=== PATIENT | male | born 1970 | race Caucasian/White ===

== ENCOUNTER 2024-03-26 08:00 | Outpatient (RCR) | payer OTHER, SELFPAY ==
--- NOTE | 2024-03-26 11:15 | BH.SGPN.GN ---
Behaviors/Verbalizations/Mental Status: [] Pt alert and oriented, casually dressed and groomed. Eye contact good. Motor activity appropriate. Speech within normal limits. Affect congruent, mood anxious and content. Thoughts linear, logical, no signs of hallucinations or delusions. Client Response/Progress/Benefit: [] Pt was an attentive and active participant in group discussions and experiential activity, doing well to regulate their emotions throughout the activity and work with peers. Attentive during psychoeducation on the 4 A's (Avoid, adapt, alter, accept) of coping with stress. Shared that they would benefit most from avoiding excessive unhealthy exposure to world politics/news. Was able to identify the connection between the experiential activity and utilization of stress management skills. Benefited from increased awareness of stress management strategies. Pt will continue IOP tx to prevent decompensation and improve daily functioning. Narrative Note: []
--- NOTE | 2024-03-26 11:29 | BH.PSA ---
Source of Information Presenting Problems/Circumstances Problems, Referral Source, Mental Status, Client: The patient is a 53-year-old male with a history of anxiety, depression and ADHD who was referred to the [facility] behavioral health IOP by his psychiatrist due to worsening anxiety and depression which is making him unable to function at work and at home for the past 6 months. Patient reports his primary stressor as increasing pressure at work, noting he does not feel he can handle any more responsibility. He feels very emotionally drained by the time he gets home from work and has been on FMLA leave since March 12, 2024 due to anxiety. Psychiatric Presentation Psych Issues & Need for Admission Psychiatric Issues:: depression, anxiety, panic Past Psychiatric History MH Treatment Hx First hospitalization:: denies Most recent hospitalization:: denies Medication Trials:: Yes (Prozac, Strattera, Ritalin and Vyvanse ) ECT Therapy:: No Age of first mental health symptoms: . Diagnosed with ADHD over 20 years ago. Depression and anxiety diagnosed in the last 15 years. He has had counseling on and off for 20 years and found it helpful. He seen a psychiatrist for 2 years. Current providers for mental health treatment (counselor, psychiatrist, correctional case manager, etc.): [facility]. No current counselor, will be connected prior to d/c. Development & Family of Origin Childhood Significant Childhood Events: Parents when pt was in middle school. Pt's father was an alcoholic. Family Who currently lives in your home?: Pt lives with his and 2 cats. Describe family composition:: Pt is the younger of two children, he has a brother whom he is close with. Pt reports his parents when he was in middle school and he has a relationship with them both. Pt has 5 children from his first marriage of 20 years ages 25-33 and has 1 stepchild from his current marriage who is 24. His oldest child is estranged from the family but he has good relationships with his other children and family. to current for 10 years. Family History Family Hx of Psychiatric or AOD Problems: Mother and father are both living. Father is an alcoholic but is in remission for 40 years. Brother has depression, anxiety and ADHD. No completed suicides in the family. Ethnicity Culture Do you identify yourself with any particular cultural, ethnic background, or community?: No Sexuality Sexual Orientation: Bisexual Spirituality Pent[employer]al Do you currently identify with any organized jew?: None Mental Status Memory Recent Memory: Fair Remote Memory: Fair Concentration Concentration: Fair Eye Contact Eye Contact: Good Speech Speech: Pressured Thought Process Thought Process: Logical Insight: Fair Judgment: Fair Behavior: Normal Orientation Orientation: Time, Person, Place and Situation Appearance Appearance: Neat/clean Mood Mood: Anxious and Depressed Affect Affect: Appropriate/calm Suicide Assessment Suicidal Ideation Have you ever felt like hurting yourself?: No Physician Notification Violent Behavior/Abuse History Homicidal Ideation Do you have any homicidal thoughts? If so, explain:: No Abuse Have you ever been abused?: No Life Events Are there any other significant life events?: Hardships (left the confucianist following divorce, estranged from oldest child) Safety Do you ever feel threatened in your home? If yes, describe:: No Adult Social History Age 18 to Present Describe your current support system:: Pt reports his and adult children are primary supports, pt would like to build additional friendships Substance Use Substance Substance Use Type: Alcohol (1-2 drinks/week), Marijuana (nightly for sleep) and Tobacco (Quit smoking cigarettes over 20 years ago) IV Substance Use Do you have a history of IV use?: denies Leisure/Social Activities Interests What do you enjoy or might be interested in learning about?: Pt enjoys bike, hiking, outdoors, learning new hobbies, Education & Occupational Histo Education What is your level of education?: Some College Do you have any learning disabilities?: Yes (ADHD) Occupation List any current or past employment:: Pt has been working in the [employer] field for much of his adult life. 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 If yes, describe:: No Court Orders Have you had any past court orders for psychiatric treatment?: No Do you have a present court order for psychiatric treatment?: No Problem Checklist Current Problem Areas Problem List: Depressed mood/sad, Anxiety, Inattention, Pertinent health issues (back issues) and Additional psychosocial stressors Discharge Planning Needs Anticipated Follow-Up Mental Health Center (Name/Phone Number):: [facility] Private Therapist/Psychiatrist:: Sindhu Grayson, psychiatrist Primary Care Physician: Moi Juan Family and Caregiver Contacts:: , Ly Guerrier Release of Information Signed:: Yes [employer]'s Assessment Client's Needs What are the client's feelings about the program?: Pt is hopeful the program will improve insight and help to stabilize his mood. What are the client's goals?: To better manage sx of anxiety and depression, as well as improve his ability to function at work. What are the client's strengths?: Pt is intelligent, motivated, and open to learning and trying new treatment recommendations. Diagnoses Diagnoses Diagnosis #1:: Major depressive disorder, recurrent, moderate Diagnosis #2:: Panic disorder Diagnosis #3:: Generalized anxiety disorder Diagnosis #4:: ADHD Interpretive Summary Interpretive Summary Interpretive Summary: The patient is a 53-year-old male with a history of anxiety, depression and ADHD who was referred to the [facility] behavioral health IOP by his psychiatrist due to worsening anxiety and depression which is making him unable to function at work and at home for the past 6 months. Patient reports his primary stressor as increasing pressure at work, noting he does not feel he can handle any more responsibility. He feels very emotionally drained by the time he gets home from work and has been on FMLA leave since March 12, 2024 due to anxiety. He states that he feels himself dying inside at work and stated this happened previously a year ago in which he also took FMLA for 2 months to address the anxiety. He has difficulty concentrating and loses his train of thought often at work. Other stressors include his [id number] whom has Alzheimer?s moving in in July, his ?s health and not wanting her to have to return to the workforce, and his daughter getting . Pt endorses panic 2-3x/week, ruminating thoughts, hopelessness, guilt, low energy, poor concentration, and loss of enjoyment in activities he previously enjoyed. Denies worthlessness, anhedonia, passive thoughts of , suicidal ideation, plan for suicide, homicidal ideation, history of self-harm, hallucinations, delusions, minoo, OCD, eating disorders and trauma or PTSD. Current sx impacting pt?s ability to function at baseline, resulting in recommended IOP level of care. Treatment Plan Recommendations Recommendations Guidelines Recommendations:: The patient will start the IOP and behavioral health at [facility] as the structure, support, education and group therapy will hopefully prevent worsening of the patient's symptoms.
--- NOTE | 2024-03-26 14:19 | BH.MTP_ITS ---
Master Treatment Plan Patient Information Program Physician:: Dr. Shara Godoy Primary Therapist:: ZEINAB Hicks Psychiatric Diagnoses Psychiatric Diagnoses:: 1. Major depressive disorder, recurrent, moderate 2. Panic disorder 3. Generalized anxiety disorder 4. ADHD Diagnosis Code(s):: F33.2 Estimated LOS Estimated LOS (in weeks):: 6 Problem/Goal #1 Problem/Goal #1 Stated Goal:: Will reduce anxiety and panic symptoms through increasing emotional regulation and distress tolerance skills Description of Barriers: Pt recognizes that he is tends to be self-critical, pushes himself, and is a perfectionist. Pt also struggles with believing he is only worthy if he is productive, which leads to pt feeling guilty or burnout. Pt is also the primary income in the household which puts additional pressure on him. Functional Impact: The patient is a 53-year-old male with a history of anxiety, depression and ADHD who was referred to the [facility] behavioral health IOP by his psychiatrist due to worsening anxiety and depression which is making him unable to function at work and at home for the past 6 months. Patient reports his primary stressor as increasing pressure at work, noting he does not feel he can handle any more responsibility. He feels very emotionally drained by the time he gets home from work and has been on FMLA leave since March 12, 2024 due to anxiety. He states that he feels himself dying inside at work and stated this happened previously a year ago in which he also took FMLA for 2 months to address the anxiety. He has difficulty concentrating and loses his train of thought often at work. Other stressors include his [id number] whom has Alzheimer?s moving in in July, his ?s health and not wanting her to have to return to the workforce, and his daughter getting . Pt endorses panic 2-3x/week, ruminating thoughts, hopelessness, guilt, low energy, poor concentration, and loss of enjoyment in activities he previously enjoyed. Denies worthlessness, anhedonia, passive thoughts of , suicidal ideation, plan for suicide, homicidal ideation, history of self-harm, hallucinations, delusions, minoo, OCD, eating disorders and trauma or PTSD. Current sx impacting pt?s ability to function at baseline, resulting in recommended IOP level of care. Goal Relevant Strengths/Supports: Pt is intelligent, has good support at home, and is able to take time off work to focus on his mental health. Objectives Objective #1: Stated Objective: Pt will increase ability to manage stressors and anxiety by gaining 2-3 distress tolerance skills. Interventions: Through group and individual therapy, pt will learn various coping skills to help manage stress and anxiety. Therapist will utilize DBT distress tolerance skills to increase awareness and give pt tools to more effectively manage anxiety. Therapist will provide psychoeducation on emotional regulation and help pt identify unhealthy coping skills he wants to change. Discharge Criteria: Pt will have accomplished this goal when can report improved ability to manage stressors and identify at least 2 distress tolerance skills. Target Date: 05/10/24 Review Date: 04/17/24 Objective #2: Stated Objective: Pt will identify 2-3 anxiety and panic triggers and 2 coping skills to use when feeling anxious or overwhelmed to manage anxiety as shown by reducing DSM-5 scores for anxiety Interventions: Therapist will provide education on anxiety, avoidance behaviors, and maintenance cycles. Therapist will help pt explore personal symptoms and warning signs of anxiety and irritability. Therapist will teach pt coping skills to improve emotional regulation, mindfulness, and distress tolerance to help pt cope with anxiety in the moment. Discharge Criteria: Pt will have accomplished this goal when he can identify at least 2 triggers and report using 2 coping skills to manage anxiety and irritability. Additionally, pt will have accomplished this goal AEB reduction of DSM-5 scores for anxiety. Target Date: 05/10/24 Review Date: 04/17/24 Problem/Goal #2 Problem/Goal #2 Stated Goal:: Pt will decrease depressive symptoms, inappropriate guilt, anhedonia, and negative self-talk. Description of Barriers: Pt recognizes that he is tends to be self-critical, pushes himself, and is a perfectionist. Pt also struggles with believing he is only worthy if he is productive, which leads to pt feeling guilty or burnout. Pt is also the primary income in the household which puts additional pressure on him. Functional Impact: The patient is a 53-year-old male with a history of anxiety, depression and ADHD who was referred to the [facility] behavioral health IOP by his psychiatrist due to worsening anxiety and depression which is making him unable to function at work and at home for the past 6 months. Patient reports his primary stressor as increasing pressure at work, noting he does not feel he can handle any more responsibility. He feels very emotionally drained by the time he gets home from work and has been on FMLA leave since March 12, 2024 due to anxiety. He states that he feels himself dying inside at work and stated this happened previously a year ago in which he also took FMLA for 2 months to address the anxiety. He has difficulty concentrating and loses his train of thought often at work. Other stressors include his [id number] whom has Alzheimer?s moving in in July, his ?s health and not wanting her to have to return to the workforce, and his daughter getting . Pt endorses panic 2-3x/week, ruminating thoughts, hopelessness, guilt, low energy, poor concentration, and loss of enjoyment in activities he previously enjoyed. Denies worthlessness, anhedonia, passive thoughts of , suicidal ideation, plan for suicide, homicidal ideation, history of self-harm, hallucinations, delusions, minoo, OCD, eating disorders and trauma or PTSD. Current sx impacting pt?s ability to function at baseline, resulting in recommended IOP level of care. Goal Relevant Strengths/Supports: Pt is intelligent, has good support at home, and is able to take time off work to focus on his mental health. Objectives Objective #1: Stated Objective: Pt will learn and utilize 2-3 healthy coping strategies to better manage depressive symptoms as shown by a decrease of DMS-5 symptoms for depression. Interventions: Through group and individual sessions, therapist will help pt identify triggers and warning signs of depression and guilt including emotional, physical, and behavioral changes. Therapist will teach pt various coping skills to manage symptoms and give pt tangible resources to use to regulate emotions. Therapist will use cognitive restructuring techniques and h elp pt gain awareness of negative thoughts that reinforce guilt and depression. Therapist will provide psychoeducation on maintenance cycles and help pt learn ways to break unhealthy maintenance cycles. Therapist will help pt incorporate behavioral activation and assist pt in setting SMART goals. Discharge Criteria: Pt will have met this goal when can report learning and using at least 2 coping skills to manage depressive symptoms and reduce isolation. Additionally, pt will have met this goal when pt's DSM-5 scores for depression decrease. Target Date: 05/10/24 Review Date: 04/17/24 Objective #2: Stated Objective: Pt will identify at least 2-3 negative self-talk messages used to reinforce negative core beliefs, worthlessness, and isolation and replace thoughts with balanced, realistic messages. Interventions: Therapist will help pt identify distorted, negative beliefs about self and replace with more realistic, affirmative messages. Therapist will use CBT and DBT to help pt increase insight to the connection between thoughts, emotions, and behaviors. Therapist will encourage pt to practice thought challenging. Discharge Criteria: Pt will have achieved this goal when can verbalize at least 2 cognitive distortions and effectively replace those thoughts with affirmative messages. Target Date: 05/10/24 Review Date: 04/17/24
--- NOTE | 2024-03-26 15:29 | BH.MDN_ITS ---
Multi-Disciplinary Note Note 60-min Individual: Time Started:: 09:30 Date: 03/26/24 Purpose of session/treatment goals addressed:: Purpose of this session was to build rapport, gather pertinent history, review pre-admission screening, as well as begin to work on treatment plan goals. Eye Contact:: Good Motor Activity:: Appropriate Appearance:: Neat and Casual Speech:: Appropriate and Tangential Mood:: Anxious and Depressed Affect:: Congruent Thoughts:: Linear, Logical and No evidence of hallucinations/delusions noted Staff Interventions:: motivational interviewing, rapport building, strengths perspective and treatment planning Client Response:: Pt receptive of session, willing to openly discuss mental health and treatment hx as well as current sx and stressors resulting in IOP tx referral. Pt reports he was diagnosed with ADHD, depression, and anxiety between 15-20 years ago and has been in counseling ?off and on? since. Noted benefit from past counseling experiences but is not currently connected with an outpatient counselor, he has however been working with an outpatient psychiatrist the past 2 years and reports this has been positive. Shared that over the past 6 month his sx of anxiety and depression have been worsening and begun impacting his functioning occupationally. Pt recently went on FMLA 2 weeks ago, March 12, for his mental health. Reports that work is his primary stressor and he previously took a 2 month FMLA leave in April 2023 for similar reasons. Pt has been in his current position for ~18 months and noted that he has felt overwhelmed and pressured to take on roles outside of his current position since starting this job. Pt reports he has several roles he is expected to take on and struggles with transitioning from one to the other. This impacts pt?s concentration, memory, ability to hold a thought while working. Pt reports that ongoing issues related to unmedicated ADHD play a significant role in his current work stress; however, he has adverse side effects to most medications prescribed for this diagnosis. Describes feeling drained and feels himself dying inside by the time he is done with work for the day. This has resulted in sx of hopelessness, guilt, low energy, fatigue, and discouragement. Pt reports his of 10 years is his primary support. He used to use bicycling as a means of coping with stress; however experienced an arrythmia while biking a few years ago which he reports has resulted in health anxiety and he now avoids high intensity exercise. Denies suicidal ideation or hx. Denies delusions or hallucination. Risks/Concerns:: Denies active suicidal ideations, plan, or intent as of this date 03/26/24 Progress Toward Goals/Plan:: Limited progress as this was pt's first day i n IOP. Pt reports feeling hopeful the program will help with better understanding and managing his mental health sx. Pt reports finding value in the group sessions so far. Not currently linked with counseling, but is connected to outpatient psychiatry & PCP. Hx of medication trails with limited benefit. Pt?s goals include decreased anxiety/depression as well as improved functioning. Time Stopped:: 10:40
--- NOTE | 2024-03-27 09:00 | BH.SGPN.GN ---
Behaviors/Verbalizations/Mental Status: [] Eye contact is good. Motor activity is appropriate. Appearance is casual. Speech is Appropriate. Mood is anxious and depressed. Affect is congruent. Thoughts are linear and logical. No evidence of psychosis. Reviewed daily check in sheet and no reports of suicidal ideations or intent. Client Response/Progress/Benefit: [] Pt participated at times during the group discussion. Attentive. Daily symptom tracker notes /5 for depression and 2/5 for anxiety. Able to identify mental health wins which include returning for his second day in IOP tx. Shared feeling hopeful that he will benefit from the various component of the program. Additional win noted as sitting with the uncomfortable this morning and allowing himself to slip-on easier shoes rather than taking the time to lace his hiking boots. Notes this is progress as he often struggles with rigid expectations regarding the way things should be. Current stressor noted as ongoing difficulties with concentration, restlessness, and inconsistency. Benefited from group support, encouragement, and feedback. Will continue in IOP to prevent decompensation, stabilize mood, and increase healthy coping. Narrative Note: []
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
[2024-03-27 09:51] VITALS: BP 157/92; PULSE 63
--- NOTE | 2024-03-27 10:10 | BH.SGPN.GN ---
Behaviors/Verbalizations/Mental Status: [] Client alert and oriented, casually dressed and groomed. Eye contact good. Motor activity appropriate. Speech within normal limits. Affect congruent, mood euthymic and anxious. Thoughts linear, logical, no signs of hallucinations or delusion Client Response/Progress/Benefit: [] Client was an active participant AEB contributing to discussion, taking notes, and engaging in group activity. Connected with the topic of pitfalls and listened to group discussion on barriers that prevent from choosing a healthier path to mental wellness. Group worked together to identify examples of personal pitfalls which included; isolation, avoidance, making excuses, denial, distortions, and unhealthy coping. Client identified letting emotions take over as a personal pitfall that have inhibited progress in the past. Client benefited from group as client learned to better identify potential barriers to improving mental health symptoms. Client will continue IOP tx to prevent decompensation, increase emotional regulation, and improve daily functioning. Narrative Note: []
--- NOTE | 2024-03-27 11:10 | BH.SGPN.GN ---
Behaviors/Verbalizations/Mental Status: [] Client alert and oriented, casually dressed and groomed. Eye contact good. Motor activity appropriate. Speech within normal limits. Affect congruent, mood anxious and euthymic. Thoughts linear, logical, no signs of hallucinations or delusions. Client Response/Progress/Benefit: [] Client receptive of session, engaged throughout AEB client actively listening and at times contributing to discussion, as well as taking notes. Client participated in the experiential activity and did well to communicate ideas with peers and manage emotions. Client attentive as group processed how the emotions and perspective of the group impacted the activity. Group worked together to identify different coping skills to help manage pitfalls. Client identified pitfall they struggle with as poor management of regulating emotions. Client plans to work on the pitfall by practicing positive self talk and grounding. Benefited from identifying personal pitfalls and strategies to overcome these pitfalls. Will continue IOP tx to prevent decompensation and increase the use of healthy coping skills. Narrative Note: []
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
--- NOTE | 2024-03-27 12:00 | BH.DR.ITP ---
Initial Treatment Plan Patient Information Visit Information: ADMISSION DATE: EXPECTED LOS: 4-6 weeks Problems/Symptoms Problem #1:: Depression Symptom:: Sadness, decreased concentration, lack of motivation, hopelessness, low energy, guilt Problem #2:: Anxiety Symptom:: Worry, rumination, panic attacks, avoidance
--- NOTE | 2024-03-29 09:00 | BH.SGPN.GN ---
Behaviors/Verbalizations/Mental Status: [] Eye contact is good. Motor activity is appropriate. Appearance is casual. Speech is Appropriate. Mood is anxious. Affect is congruent. Thoughts are linear and logical. No evidence of psychosis. Reviewed daily check in sheet and no reports of suicidal ideations or intent. Client Response/Progress/Benefit: [] Pt was an active participant in group discussions. Attentive. Daily symptom tracker notes 07/14 for depression and anxiety. Yesterday was a nice balanced day. Completed a great deal of tasks and is getting ready for his daughter's marriage next week. He felt positive yesterday and didn't feel like a burden to his due to his mental health. He continues to have spikes or anxiety and panic with ruminating thoughts regarding work. Emotion for today is mixed. Progress noted, however he is unable to identify any skills, strategies, or thinking patterns that helped him cope better yesterday. Limited insight. Benefited from group support, encouragement, and feedback. Will continue in IOP to prevent decompensation, stabilize mood, and improve functioning to return to work. Narrative Note: []
--- NOTE | 2024-03-29 10:10 | BH.SGPN.GN ---
Behaviors/Verbalizations/Mental Status: []Patient was alert and oriented, casually dressed and groomed. Eye contact was good, motor activity normal, speech within normal limits. Affect congruent, mood calm. Thoughts linear, logical, no signs of hallucinations or delusion Client Response/Progress/Benefit: []Pt participated in the group discussions AEB nodding and taking notes. Attentive during psychoeducation Goal Setting. Participated during the discussion on common barriers and pt identified some personal barriers as not knowing one?s motivation for the goal and external stressors. Group also identified benefits of goals as sense of purpose, improved self-confidence, more motivation for other goals, and improved mental health. Pt?s personal benefit was learning and seeing progress. Benefited from increased awareness of mental health benefits of goals as well as psychoeducation on SMART goal criteria. Will continue in IOP to improve daily functioning, reduce intensity of anxiety, and gain healthy coping skills. Narrative Note: []
--- NOTE | 2024-03-29 11:10 | BH.SGPN.GN ---
Behaviors/Verbalizations/Mental Status: []Pt alert and oriented, casually dressed and groomed. Eye contact good. Motor activity appropriate. Speech within normal limits. Affect congruent, mood anxious and depressed. Thoughts linear, logical, no signs of hallucinations or delusions. Client Response/Progress/Benefit: [] Pt was engaged during discussion and willing to complete the worksheet challenging them to develop a personal SMART goal. Pt chose the goal of taking 3 breaks to do something active for 15 minutes each day for the next week. Pt stated low motivation as a potential barrier. Identified solution as reminding himself of the benefits of this goal. Benefited from this group by developing a short-term SMART goal related to mental health. Will continue IOP tx to increase consistent use of healthy coping skills, challenge distortions, and prevent decompensation. Narrative Note: []
--- NOTE | 2024-04-01 09:00 | BH.SGPN.GN ---
Behaviors/Verbalizations/Mental Status: [] Eye contact is good. Motor activity is appropriate. Appearance is casual. Speech is Appropriate. Mood is anxious. Affect is congruent. Thoughts are linear and logical. No evidence of psychosis. Reviewed daily check in sheet and no reports of suicidal ideations or intent. Client Response/Progress/Benefit: [] Pt was an active participant in group discussion. Daily symptom tracker notes 08/14 for anxiety. Reports increased anxiety today. Shared some events over the weekend in which he felt overwhelmed. He was able to utilize skills and break things down which helped decrease anxiety. According to pt he is already worrying about future events such as returning to work and the progress he is going to make in IOP. He mentioned several times that he needs to reflect on himself and what he wants out of his career. Contemplating a career changes after 30 years which he notes is a big life decisions. Struggling with how to approach making this decision. Peers offered feedback which was beneficial. Will continue in IOP to prevent decompensation, stabilize mood, increase healtjhy coping, and improve functioning to return to work. Narrative Note: []
--- NOTE | 2024-04-01 10:15 | BH.SGPN.GN ---
Behaviors/Verbalizations/Mental Status: []Client alert and oriented, casually dressed and groomed. Eye contact good. Motor activity appropriate. Speech within normal limits. Affect congruent, mood content. Thoughts linear, logical, no signs of hallucinations or delusions. Client Response/Progress/Benefit: [] Pt was an attentive an active participant, AEB taking notes and providing input in group discussion when prompted. Attentive during psychoeducation. Pt engaged during interactive discussion in which the group defined self-care and discussed its benefits. Group discussed barriers to engaging in self-care. Group members together came up with guilt, time, ?people pleasing?, not knowing what to do, and perception that its unproductive as barriers to engage in self-care. Pt stated their personal barrier is not knowing what to do and feeling unproductive. Pt participated in small groups where they worked to identified and challenged common self-care ?myths?. Benefited from increased awareness of self-care, its benefits, and the consequences of not utilizing self-care strategies. Will continue IOP tx to promote mood stability, reduce intensity of anxiety, and improve daily functioning. Narrative Note: []
--- NOTE | 2024-04-01 11:18 | BH.SGPN.GN ---
Behaviors/Verbalizations/Mental Status: [] Client alert and oriented, casually dressed and groomed. Eye contact good. Motor activity appropriate. Speech within normal limits. Affect congruent, mood anxious and content. Thoughts linear, logical, no signs of hallucinations or delusions. Client Response/Progress/Benefit: []Client engaged in discussion reviewing different areas of self-care and completing self-assessment of current self care, as well as providing input throughout discussion. Did well to complete self-care self-assessment worksheet. Client identified current self-care practices and what self-care activities client wants to start using. Client selected emotional and professional self-care to begin practicing more consistently. Client plans to do this by challenging himself to look more intentionally at whether of not his current career path is sustainable based on the impacts this has had on his mental and emotional health. Appeared to benefit from completing the self-care evaluation and gaining insights into current self-care practices, as well as identifying areas in which client would like to improve upon. Client will continue IOP tx to prevent decompensation, improve mood stability, and increase healthy coping repertoire. Narrative Note: []
--- NOTE | 2024-04-02 09:00 | BH.SGPN.GN ---
Behaviors/Verbalizations/Mental Status: [] Eye contact is good. Motor activity is appropriate. Appearance is casual. Speech is Appropriate. Mood is anxious. Affect is congruent. Thoughts are linear and logical. No evidence of psychosis. Reviewed daily check in sheet and no reports of suicidal ideations or intent. Client Response/Progress/Benefit: [] Pt was an active participant in group discussions. Attentive. Daily symptom tracker notes 07/14 for anxiety. Emotion for today is anxious. He shared ruminations regarding the root of his mental health struggles. Worried that he will not be able to identify core issues while in IOP. Describes compartmentalizing his mood and emotions throughout the day. He tends to function and present well in front of others however when alone struggle. He is fearful that despite feeling better this will be only temporary and long-term he will continue to struggle. Limited progress. Benefited from group support, encouragement, and feedback. Has family session today with . Will continue in IOP to prevent decompensation, stabilize mood, and improve functioning to return to work. Narrative Note: []
--- NOTE | 2024-04-02 09:45 | BH.MDN_ITS ---
Multi-Disciplinary Note Note Family: Time Started:: 12:00 Date: 04/02/24 Purpose of session/treatment goals addressed:: To bring pt's support person in for psychoeducation, gather additional insight from pt?s on triggers impacting pt's mental health, and to improve support in general. Eye Contact:: Good Motor Activity:: Appropriate Appearance:: Neat and Casual Speech:: Appropriate Mood:: Anxious and Depressed Affect:: Congruent Thoughts:: Linear, Logical and No evidence of hallucinations/delusions noted Staff Interventions:: motivational interviewing, psychoeducation on: (ERP therapy, maintenance cycles), CBT techniques, rapport building, strengths perspective and treatment planning Client Response:: Pt and responded well to session, open to meeting with therapist. Pt had goals for session to address pt?s difficulties in fu nctioning at work and recent influx in depression. Pt and his report having a very supportive and loving marriage, but they feel recently that they have been unable to enjoy their marriage due to several psychosocial stressors they are navigating, as well as difficulties with feeling present with one another. Pt and his agreed that pt?s occupation seems to be the primary source of stress for him and impacts his ability to function both occupationally and outside of work. Pt described feeling overwhelmed by the pressure of his job and not having much, if any, time to take breaks or collect himself between occupational tasks. Pt is expected to serve several different roles at his current position, which requires role transitioning on short notice, and pt shared that this is very difficult for him to do mentally which then throws off the remainer of the day. Reports recently becoming more irritable and hopeless as a result. Pt and his agreed that he often forgets about the stress of the previous day the next morning and is possibly unrealistically hopeful and cheerful that the stress of the work day will not affect him. Pt was previously in a similar role at a different company which allowed for a more flexible schedule. Pt?s provided insight that this flexibility allowed pt to stop between tasks and take time for self-care prior to completing the next thing. Pt and his indicated he had been far less stressed and irritable as a result. Primary focus was on goal setting for IOP as this is pt?s 2nd week. Pt and his identified a need to determine whether his current position, though higher paying, is the healthiest fit for him. Additional goal is identifying skills for pt to better manage his stress and health anxiety. Pt?s primary source of self- care is bike riding which he has recently stopped doing due to a health scare a year or so ago. Pt wants to additionally create healthy balance of household responsibilities without he or his overcompensating or feeling guilt, as this is often the case. Pt and responded well to the psychoeducation on maintenance cycles and introduction to exposure response prevention approaches to managing anxiety. Plan for an additional family session nearing end of IOP tx. Risks/Concerns:: Pt denies any active SI, plan, or intent. Progress Toward Goals/Plan:: Limited as this is pt?s 2nd week in tx. Pt continues to make progress towards improving comfort and engagement in group setting. Pt reports hopefulness that IOP groups will aid in reducing depressive sx, health anxiety, and improve his ability to make an informed decision regarding employment. Pt receptive of beginning regular check-ins with his on each other?s needs as discussed in session. Pt will continue IOP tx to improve mood stability, reduce occupational stress and anxiety, and prevent decompensation. Time Stopped:: 13:00
--- NOTE | 2024-04-02 10:10 | BH.SGPN.GN ---
Behaviors/Verbalizations/Mental Status: [] Eye contact is good. Motor activity is appropriate. Appearance is casual. Speech is Appropriate. Mood is euthymic. Affect is congruent. Thoughts are linear and logical. No evidence of psychosis. Client Response/Progress/Benefit: [] Pt did well to participate in activity and was engaged and attentive during psychoeducation and interactive discussion on coping skills, why people use unhealthy coping skills, how to replace unhealthy coping skills, and internal vs external coping skills. Attentive as peers came up with list of negative coping skills including not asking for help, avoidance, isolating, sleeping, shopping, substance use, and several others. Pt stated he has used isolation as an unhealthy coping skill. Recognizes this makes things worse. Stated he has been working on challenging his perspective. Group discussed the effects of how negative coping skills can impact mental health in a negative way. Benefited from increased understanding of unhealthy coping skills and the need for developing healthy internal and external coping skills. Will continue in IOP to promote healthy coping skills, set realistic expectations, and prevent decompensation.
--- NOTE | 2024-04-02 11:10 | BH.SGPN.GN ---
Behaviors/Verbalizations/Mental Status: []Pt alert and oriented, casually dressed and groomed. Eye contact good. Motor activity appropriate. Speech within normal limits. Affect congruent, mood content. Thoughts linear, logical, no signs of hallucinations or delusions. Client Response/Progress/Benefit: [] Pt responded well to session, taking notes and contributing when prompted. Group discussed the different categories of coping skills which included distraction, emotional release, grounding, self-love, and thought challenging. Pt participated in creating a coping skills ?menu? from the five categories of coping skills. Pt's coping skill menu included: journaling, guided meditation, helping others, laughing, and not giving thoughts power. Appeared to benefit from increasing repertoire of healthy coping skills. Will continue IOP to improve mood stability, reduce negative thinking patterns, and improve daily functioning. Narrative Note: []
--- NOTE | 2024-04-04 09:05 | BH.SGPN.GN ---
Behaviors/Verbalizations/Mental Status: [] Eye contact good. Motor activity appropriate. Speech within normal limits. Affect congruent, mood content and anxious. Thoughts linear, logical, no signs of hallucinations or delusions. Reviewed client?s symptom tracker, pt denies SI,?plan, or intent as of 04/04/2024. Client Response/Progress/Benefit: [] Client receptive of session, attentive and willing to process with group. Reports improving sx of depression?(0/5) and agitation (0/5) per daily sx tracker. ?Identified mental health ?win as doing well to challenge health anxiety distortions while his was in surgery yesterday. Shared several thought challenge statements he recited to maintain calm. Additional win noted as continuing to make progress in simplifying certain areas of his life and sit with the discomfort of making these changes. Reflected that this will aid in him making changes occupationally once returning to work. Stressor noted as taking on additional responsibilities while his recovers. Shared this may also be good to get him back into a consistent routine. Receptive of and appearing to benefit from group support. Recommended continued IOP tx to maintain mood stability, promote consistent skill application, well as prevent decompensation. Narrative Note: []
--- NOTE | 2024-04-04 10:10 | BH.SGPN.GN ---
Behaviors/Verbalizations/Mental Status: [] Eye contact is good. Motor activity is appropriate. Appearance is neat and clean. Speech is Appropriate. Mood is anxious and content. Affect is congruent. Thoughts are linear and logical. No evidence of psychosis. Client Response/Progress/Benefit: [] Pt receptive to session AEB listening attentively to others and taking notes. Pt attentive and contributing throughout psychoeducation on the cognitive triangle and maintenance cycles. Pt engaged during group discussion reviewing the impact of daily activities and behaviors in either reinforcing unhealthy maintenance cycles and depression or assisting in reducing symptoms (?down? vs ?up? activities). Pt identified personal ?down? activities they engage in as: not finishing projects, shutting down, and sleeping. Attentive during discussion on Common ?Up? activities Pt identified theirs to include: being social, moving his body, and getting outside. Appeared to benefit from increased awareness of current behaviors and impact these have on mental health. Will continue IOP to reduce anxious thought patterns, improve self-compassion, and reduce avoidance. ?? Narrative Note: []
--- NOTE | 2024-04-04 11:10 | BH.SGPN.GN ---
Behaviors/Verbalizations/Mental Status: [] Eye contact is good. Motor activity is appropriate. Appearance is casual. Speech is Appropriate. Mood is anxious. Affect is congurent. Thoughts are linear and logical. No evidence of psychosis Client Response/Progress/Benefit: [] Pt responded well to session, attentive and engaged in group discussions and activity. Active participant as group discussed values and the benefits that knowing one's values can have on one's mental health. Pt explored own values and identified personal top values. Pt stated personally important values are intimate relationships and family. ?Pt set a goal to schedule date nights ahead of time and ask what she needs help with. Benefited from increased awareness of their personal values and how incorporating their values into behavioral activation goals can positive impact mental health. Will continue in IOP to prevent decompensation, gain healthy coping skills, and improve daily functioning to return to work. Narrative Note: []
== END 2024-04-08 23:59 ==
LOC: BHIOP 08:00
PROVIDERS: Referring Provider Psychiatry & Neurology Psychiatry; Visit Provider Psychiatry & Neurology Psychiatry
DX: F33.1 Major depressive disorder, recurrent, moderate (principal); F41.0 Panic disorder [episodic paroxysmal anxiety]; F41.1 Generalized anxiety disorder; F90.9 Attention-deficit hyperactivity disorder, unspecified type; Z79.899 Other long term (current) drug therapy
CPT/HCPCS: S9480; 90837; 90847; 90853

== ENCOUNTER 2024-04-09 08:04 | Outpatient (RCR) | payer OTHER, SELFPAY ==
[2024-04-09 00:48] VITALS: BP 157/92; PULSE 63
--- NOTE | 2024-04-09 09:00 | BH.SGPN.GN ---
Behaviors/Verbalizations/Mental Status: [] Eye contact is good. Motor activity is appropriate. Appearance is casual. Speech is Appropriate. Mood is anxious. Affect is congruent. Thoughts are linear and logical. No evidence of psychosis. Reviewed daily check in sheet and no reports of suicidal ideations or intent. Client Response/Progress/Benefit: [] Pt was an active participant in group discussions. Attentive. Emotion for today is ?hopeful and stressed?. He started a journal and hopes to ?give it a shot? to see if it helps with negative thoughts and perspectives. Consistent with medications which he feels is beneficial as well. Has been taking on more responsibility at home which makes him feel more engaged and less of a burden. Continues to report high anxiety related to psychosocial stressors and work. Progress noted. Benefited from group support, encouragement, and feedback. Will continue in IOP to prevent decompensation, stabilize anxiety, and improve functioning to return to work. Narrative Note: []
--- NOTE | 2024-04-09 10:15 | BH.SGPN.GN ---
Behaviors/Verbalizations/Mental Status: []Eye contact is good. Motor activity is restless. Appearance is neat. Speech is Appropriate. Mood is euthymic. Affect is full. Thoughts are linear and logical. No evidence of psychosis. Client Response/Progress/Benefit: [] Pt was engaged and an active participant throughout, providing input and taking notes. Participated throughout interactive discussion on defining anxiety and identifying cognitive and physiological symptoms of anxiety. Group discussed the role of anxiety on isolation, avoidance, and who this emotion impacts their ability to start and complete activities/goals. Pt identified their physical/physiological signs of anxiety (i.e. back and neck pain, heart racing, and verbal and physical ticks). Pt identified safety behaviors (i,e over-preparing, reassurance seeking, and avoidance). Benefited from increased awareness and insight on anxiety and its impact. Will continue in IOP to reduce negative thinking patterns, improve daily functioning, and increase self-confidence. Narrative Note: []
--- NOTE | 2024-04-09 11:15 | BH.SGPN.GN ---
Behaviors/Verbalizations/Mental Status: []Pt alert and oriented, casually dressed and groomed. Eye contact good. Motor activity appropriate. Speech within normal limits. Affect congruent, mood euthymic. Thoughts linear, logical, no signs of hallucinations or delusions. Client Response/Progress/Benefit: [] Pt was an active participant AEB pt providing input and listening attentively to peers. Attentive during psychoeducation on mindfulness coping skills and their impact on reducing anxiety and improving overall mental health wellness. Group was able to identify self-soothing and mind-based coping skills which included: 5-senses, meditation, deep breathing, TIPP, thought challenging, and progressive muscle relaxation. Pt also participated with peers in practicing mindfulness skills in session including deep breathing. Pt would like to work on using delay, distract, decide to manage anxiety. Appeared to benefit from increasing repertoire of anxiety reduction skills. Pt will continue in IOP tx to promote mood stability, reduce avoidance, and improve distress tolerance skills. Narrative Note: []
--- NOTE | 2024-04-10 09:00 | BH.SGPN.GN ---
Behaviors/Verbalizations/Mental Status: []Pt alert and oriented, neatly dressed and groomed. Eye contact good. Motor activity appropriate. Speech within normal limits. Affect congruent, mood anxious and frustrated. Thoughts linear, logical, no signs of hallucinations or delusions. Reviewed pt?s symptom tracker, no risk for suicidal ideation, plan, or intent 04/10/24 Client Response/Progress/Benefit: []Pt was an active participant in group discussions. Attentive. Able to identify mental health wins including practicing self-acceptance and validation as well as reaching out to his biggest support-his . Pt's stressor today is that he went to his outpatient psychiatrist and felt that his needs and current stressor were invalidated. Pt shared this was out of character for his provider. Pt stated pt is feeling frustrated and discouraged this morning. Pt receptive to feedback from peers which pt reported was helpful. Progress noted. Benefited from group support, encouragement, and feedback. Will continue in IOP to prevent decompensation, improve distress tolerance skills, and increase self-compassion. Narrative Note: []
--- NOTE | 2024-04-10 09:12 | BH.MDN_ITS ---
Multi-Disciplinary Note Note 60-min Individual: Time Started:: 12:15 Date: 04/10/24 Purpose of session/treatment goals addressed:: Purpose of session was to address current stressors impacting pt mood and reinforcing sx of anxiety. Eye Contact:: Good Motor Activity:: Appropriate Appearance:: Casual Speech:: Appropriate and Pressured Mood:: Anxious Thoughts:: Linear, Logical and No evidence of hallucinations/delusions noted Staff Interventions:: thought challenging, CBT techniques (decisional balance, values exploration.) and strengths perspective Client Response:: Pt responded well to session, open to meeting with therapist. Pt reported he has continued to struggle with concentration, ability to retain information when working on projects, and motivation to do things despite improved energy levels. Pt reports that he has recently had to establish a more consistent routine surrounding household responsibilities since his ?s surgery last week. Reports she is doing well which has been a stress relief and pt believes more responsibility around the house has been helpful in beginning to improve motivation levels. Pt reports ongoing sx of anxiety and despite several psychosocial stressors, returning to work continues to be his primary concern. Pt described fear he will not be ready to do so by May 13 when he is supposed to. Reports attempting to work on a [email or web address] project on a few occasions since taking FMLA and is finding it difficult to focus on the task at hand. 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 already without actually taking steps to improve self-care. Pt identified customer service, equality, and respect as major values of his. 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 Pt described knowing he will not be able to abide by these values regardless of the position he is in if he remains at his current company. Discussed difficulties allowing himself to consider looking for alternative employment due to guilt associated with the potential that his would then be forced to return to work. Did well to work with therapist on challenging inappropriate guilt and distortions reinforcing this. Additionally, pt receptive of discussing these concerns further with his . Plans to also reflect on his conditionals and unconditionals surrounding his career and home life, in order to reflect upon whether he is able to reasonably support these within his current place of employment. Risks/Concerns:: none noted. Pt denies SI, plan, or intent as of this date 04/10/24 Progress Toward Goals/Plan:: Progress remains variable. Pt reports improved mood and is finding value in group and individual sessions. He reports trying to improve internal boundaries with himself to prevent from feeling guilty for not doing everything around the house while his is healing post- surgery. Pt reports difficulties in motivating himself to engage in self-care and fears he is not making as much progress as he should. Shared that he fears he will not be able to return to work successfully by next month and struggles with challenging these thoughts. Pt reports he often convinces himself of something and has difficulties in challenging his perspective afterward. Recommended continued IOP tx to improve mood stability, reduce thought distortions, and increase confidence in order to return to work. Time Stopped:: 13:13
--- NOTE | 2024-04-10 10:10 | BH.SGPN.GN ---
Behaviors/Verbalizations/Mental Status: [] Eye contact is good. Motor activity is appropriate. Appearance is casual. Speech is Appropriate. Mood is anxious and content. Affect is congruent. Thoughts are linear and logical. No evidence of psychosis Client Response/Progress/Benefit: [] Pt responded well to session AEB contributing to small group discussion, taking notes, and listening attentively to others. Group defined anger and discussed the benefits of managed anger and anger as a secondary emotion. Group shared perspective on benefits of anger as advocating for self and getting needs met, as well as a catalyst for change. Pt completed worksheet on anger triggers and personal warning signs of anger. Pt identified a common trigger as people taking advantage of my people pleasing/not respecting boundaries. Appeared to benefit from increased knowledge of the anger cycle as well as personal triggers. Will continue IOP to increase healthy coping, prevent decompensation, and improve functioning to return to work. Narrative Note: []
--- NOTE | 2024-04-10 11:10 | BH.SGPN.GN ---
Behaviors/Verbalizations/Mental Status: []Client alert and oriented, casually dressed and groomed. Eye contact good. Motor activity appropriate. Speech within normal limits. Affect congruent, mood euthymic. Thoughts linear, logical, no signs of hallucinations or delusions. Client Response/Progress/Benefit: []Pt was engaged throughout AEB contributing to group discussion and activity. Group processed how they each responded to the intentionally difficult task they were asked to completed and described the physical and emotional anger cues experienced throughout, as well as strategies used for managing these frustrations. Pt contributed as group brainstormed healthy coping skills for better managing anger which included: music, walking/exercise, taking a break, healthy venting, avoiding unnecessary stressors, reflection, and journaling. Pt cooperative with working in small groups to identify what strategy wants to work on to help interrupt personal anger cycle. Pt to continue IOP to build confidence, challenge anxious thoughts, and prevent decompensation.
--- NOTE | 2024-04-10 12:20 | PCM.BH.PN ---
Progress Note Progress Note: History of Present Illness/Interim History: The patient is a 53-year-old male with a history of depression, anxiety and ADHD who is seen in follow-up at the [facility] behavioral health [facility]. I last saw the patient 2 weeks ago and since then he has been increasing the Lexapro as directed by his outpatient provider. He is tolerating the medication well and he feels it is helping him and he has not had any side effects. His depression is better but he is still very worried about returning to work on May 13, 2024. He feels he is still unable to focus well enough to work. Ongoing stressors include his recently having surgery and his [id number] supposedly is moving in in July 2024. He would like to try exercising again and to get less anxious over his health. He feels he is more motivated lately. Sleep is about 6 to 8 hours a night without waking and no daily naps. Energy level is good but concentration remains low. He denies worthlessness, hopelessness, anhedonia or guilt. He denies passive thoughts of , suicidal ideation, plan for suicide, homicidal ideation, hallucinations or delusions. He has not had a panic attack since starting the IOP. Current Psychiatric Medications: [] Lexapro 10 mg p.o. daily was started last night and his outpatient provider plans to increase him to 15 mg p.o. daily next week. Mental Status Examination: [] The patient is a 53-year-old male who appears normal for stated age and is casually dressed and groomed with good hygiene. He has no psychomotor agitation or retardation and is ambulatory with a normal gait. He is cooperative and pleasant during the interview. Speech is normal rate and rhythm and fluent with no pressure. Eye contact is good. Mood is anxious. Affect is full and normal. Thought process is goal-directed and organized. Thought content: There is evidence of of extreme worry about returning to work as he feels he is unable to concentrate. There is no evidence of passive thoughts of , suicidal ideation, homicidal ideation, plan for suicide, thoughts of self-harm, hallucinations or delusions. Reality testing is intact. Intelligence is above average. Judgment is intact. Insight: Limited but some present. Impulsivity: Low. Diagnoses: [] 1. Major depressive disorder, recurrent, moderate 2. Generalized anxiety disorder 3. Panic disorder 4. ADHD 5. Work and primary support issues Plan: [] The patient will continue the IOP and behavioral health at [facility] as the structure, support, education and group therapy will hopefully prevent worsening of the patient's symptoms. He felt safe during the interview and if it anytime he does not feel safe he agrees to let us know or go to the emergency room. No medication changes were made today as he increased his dose of Lexapro yesterday. He will continue to follow-up with his outpatient providers and I will see the patient in follow-up while he is in the IOP.
--- NOTE | 2024-04-15 09:00 | BH.SGPN.GN ---
Behaviors/Verbalizations/Mental Status: []Pt alert and oriented, neatly dressed and groomed. Eye contact good. Motor activity appropriate. Speech within normal limits. Affect congruent, mood euthymic and anxious. Thoughts linear, logical, no signs of hallucinations or delusions. Reviewed pt?s symptom tracker, no risk for suicidal ideation, plan, or intent 04/15/24. Client Response/Progress/Benefit: []Pt was an active participant in group discussions. Attentive. Able to identify mental health wins including setting a boundary with his child and it being respected. 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 Pt shared his stressor today is recovering from the weekend and going back to work so pt feels distant anxiety this morning.Pt receptive to feedback from peers which pt reported was helpful. Progress noted. Benefited from group support, encouragement, and feedback. Will continue in IOP to promote mood stability, increase self-confidence, and improve daily functioning. Narrative Note: []
--- NOTE | 2024-04-15 10:15 | BH.SGPN.GN ---
Behaviors/Verbalizations/Mental Status: []Pt alert and oriented, casually dressed and groomed. Eye contact good. Motor activity appropriate. Speech within normal limits. Affect congruent, mood euthymic. Thoughts linear, logical, no signs of hallucinations or delusions. Client Response/Progress/Benefit: [] Pt was attentive during psychoeducation and participated in group activity. Group discussed what contributes to a person?s perspective and how perspective can positively or negatively impact mental health treatment. Pt reflected on their perspective today and how it is impacting them. Pt shared their perspective today is being more positive. Pt shared this perspective keeps him accountable and motivated to work on his goals. Pt does admit that there are times he is more negative and discouraged. Pt appeared to benefit from increasing awareness of different perspectives and how they can affect mental health. Pt will continue IOP tx to promote mood stability, increase self-confidence in his ability to manage stressors, and increase work-related functioning. ??? Narrative Note: []
--- NOTE | 2024-04-15 11:10 | BH.SGPN.GN ---
Behaviors/Verbalizations/Mental Status: []Pt alert and oriented, casually dressed and groomed. Eye contact good. Motor activity appropriate. Speech within normal limits. Affect congruent, mood content. Thoughts linear, logical, no signs of hallucinations or delusions. Client Response/Progress/Benefit: []Pt was attentive and contributed to group discussion. Pt worked with group to identify strategies that can help with challenging negative perspective. Pt stated she can remind self that things take time as a way to challenge negative perspective. Pt completed strengths exploration worksheet, identifying his personal strengths. Pt able to acknowledge how these strengths are helping pt and can continue to help pt in mental health journey. Pt identified wanting to work on leaning on strength of honesty and to practice skill of daily gratitude. Benefited from identifying personal strengths and strategies for enhancing use of identified strengths. Pt will continue IOP tx to continue practice healthy coping skills, build confidence, and prevent decompensation.
--- NOTE | 2024-04-16 09:02 | BH.SGPN.GN ---
Behaviors/Verbalizations/Mental Status: []Client alert and oriented, casual appearance. Eye contact good. Motor activity appropriate. Speech within normal limits. Affect congruent, mood euthymic and anxious. Thoughts linear, logical, no signs of hallucinations or delusions. Reviewed client's symptom tracker, no risk for suicidal ideation, plan, or intent. Client Response/Progress/Benefit: []Client responded well to session AEB listening to others and sharing thoughts/feelings. Client reported mental health positive and stressor was yesterday realizing he has been willful about admitting that he has to stay at his job even though he does not like it so that his does not have to work. Client reported he recognizes any time she would bring up the idea of going back to work he would immediately shut it down because he thought of himself as a failure. Client reported having perspective group yesterday helped him see that he needs to be open to hearing his 's perspective instead of immediately shutting it down. Client stated he is feeling stressed though because if he does choose to not go back to work and get a different job it will change their financial's budget. Client stated additional mental positive as continuing to engage in utilizing his healthy coping skills. Client stated feeling hopeful and exhausted this morning. Appeared to benefit from support from peers. Will continue IOP tx to maintain gains, challenge distortions, and prevent decompensation. Narrative Note: []
--- NOTE | 2024-04-16 10:10 | BH.SGPN.GN ---
Behaviors/Verbalizations/Mental Status: []Client alert and oriented, casually dressed and groomed. Eye contact good. Motor activity appropriate. Speech within normal limits. Affect congruent, mood content. Thoughts linear, logical, no signs of hallucinations or delusions. Client Response/Progress/Benefit: [] Pt responded well to session AEB actively participating throughout group. Pt was attentive throughout group activity discussing famous individuals and how they overcame failure to be successful. Pt helped group identify how fear of failure can impact mental health and relationships. Pt personally identified it leads to pt feeling afraid of disappointing others and then not setting boundaries or taking on more than is sustainable. participated in experiential activity, working with group members to problem solve. Appeared to benefit from increased knowledge of what causes fear of failure and how it impacts people. Will continue IOP tx to prevent decompensation, improve daily functioning, and increase mood stability. Narrative Note: []
--- NOTE | 2024-04-16 11:10 | BH.SGPN.GN ---
Behaviors/Verbalizations/Mental Status: []Client alert and oriented, casually dressed and groomed. Eye contact good. Motor activity appropriate. Speech within normal limits. Affect congruent, mood euthymic. Thoughts linear, logical, no signs of hallucinations or delusions. Client Response/Progress/Benefit: [] Pt responded well to session, engaged in the experiential activity and attentive throughout group processing. Pt reported fear of failure has kept Pt from turning down projects at work. Pt completed fear of failure worksheet and was able to identify thoughts and behaviors that reinforce personal fear of failure including difficulty balancing life, people pleasing, and taking on too much. Pt participated in small group discussion regarding strategies to overcome fear of failure. Identified wanting to work on dialectical thinking and cognitive diffusion. Appeared to benefit from increased knowledge of strategies to combat fear of failure and gaining self-awareness. Pt will continue IOP tx to promote mood stability, increase self-confidence, and improve work-related functioning. Narrative Note: []
--- NOTE | 2024-04-17 15:21 | BH.TPR ---
Treatment Plan Review Demographics Date of Admission:: 03/26/24 Date of Treatment Plan Review:: 04/17/24 Admitting Diagnoses:: 1. Major depressive disorder, recurrent, moderate 2. Generalized anxiety disorder 3. Panic disorder 4. ADHD Current Diagnoses:: 1. Major depressive disorder, recurrent, moderate 2. Generalized anxiety disorder 3. Panic disorder 4. ADHD Patient Status Patient's Response to Treatment:: Pt has responded well to treatment AEB consistent attendance, providing feedback in groups, and putting forth effort to apply skills outside treatment environment. Pt additionally is exploring his values and working to actively challenge his perspective. Status of Current Problems and Symptoms: Pt has reported treatment progress with decreased anxiety, decreased depression, improved use of healthy coping skills, and decreased substance use. Pt has reported some continued issues with feeling anxious to return to work and unsure of whether he would like to remain at this place of employment. Pt struggling with feeling lonely at times, but stated he has been looking into options for increasing socialization and further exploring ways to connect within the LGBT community. Per DSM 5 cross-cutting measure pt's overall mental health symptoms decreased by 8%. Progress Problem #1: Problem Name:: Depression Status of Goals:: Obj 1 - met, ongoing work encouraged. Pt reports use of being around family, and opposite action as healthy skills that have helped his mood. Per DSM 5 cross-cutting scale at review pt's depression as decreased by 17%. Pt has ongoing reports of no motivation and difficulties engaging in hobbies he enjoys as a result. Due to difficulties in applying opposite action in this area this is likely why depressive sx have not further reduced. Obj 2 - not met. Pt is starting to be able to identify negative thoughts that can impact his mood, but struggles with challenging them independently. Team Recommendations:: Team recommends continued goals and objectives to provide time for client to reinforce skills, use strategies on a consistent basis, and maintain gains. Problem #2: Problem Name:: Anxiety Status of Goals:: not yet met, ongoing work encouraged. Pt reports use of belly breathing, reaching out to supports, and taking a step back as healthy calming skills that have helped him managing moments of distress. Per DSM 5 cross-cutting scale at review pt's anxiety has decreased by 40%. Obj 2 - not met. Pt continue to work on increasing awareness of his anxiety triggers with improved ability to use healthy coping skills to manage anxious symptoms. Team Recommendations:: Team recommends continued goals and objectives to provide time for client to reinforce skills, use strategies on a consistent basis, and maintain gains.
--- NOTE | 2024-04-18 09:00 | BH.SGPN.GN ---
Behaviors/Verbalizations/Mental Status: [] Eye contact is good. Motor activity is appropriate. Appearance is casual. Speech is Appropriate. Mood is euthymic. Affect is full. Thoughts are linear and logical. No evidence of psychosis. Reviewed daily check in sheet and no reports of suicidal ideations or intent. Client Response/Progress/Benefit: [] Pt was an active participant in group discussions. Attentive. Notes progress in the past few days ? things are clicking?.??Feels that he is addressed ?core issues? in his life. He has decided to seek a new career path which has led to uncertainty about how this will impact him and his family. ? How do I make changes in a healthy way?. Progress noted. Benefited from group support, encouragement, and feedback. Will continue in IOP to prevent decompensation, increase healthy strategies, and improve functioning to return to work. Narrative Note: []
--- NOTE | 2024-04-18 10:15 | BH.SGPN.GN ---
Behaviors/Verbalizations/Mental Status: [] Pt alert and oriented, appropriate grooming/appearance. Eye contact good. Motor activity appropriate. Speech within normal limits. Affect congruent, mood content, anxious. Thoughts linear, logical, no signs of hallucinations or delusions. Client Response/Progress/Benefit: [] Pt was an active participant in group discussions. Attentive during psychoeducation. Contributed during interactive discussions in which peers attempted to define crisis. Group identified examples of potential crisis. Group also worked together to identify unhealthy responses to crisis which included lashing out, isolation, self-harm, and distraction. Pt identified personal warning signs for crisis as isolating, avoidance, and loss of interest. Benefited from increased understanding of crisis and awareness of personal responses to crisis. Pt will continue IOP tx to increase functioning and prevent decompensation. Narrative Note: []
--- NOTE | 2024-04-18 14:26 | BH.MDN_ITS ---
Multi-Disciplinary Note Note 45-min Individual: Time Started:: 11:28 Date: 04/18/24 Eye Contact:: Good Motor Activity:: Appropriate Appearance:: Casual Speech:: Appropriate and Pressured Mood:: Euthymic and Anxious Affect:: Congruent Thoughts:: Linear, Logical and No evidence of hallucinations/delusions noted Staff Interventions:: motivational interviewing, psychoeducation on: (behavioral activation), CBT techniques, strengths perspective and goal setting Client Response:: Pt receptive of session, engaged and willing to process current stressors and thoughts impacting anxiety levels. Shared feeling more anxious and overwhelmed to day that earlier in the week. Reflected beliefs that this is in part due to coming to the conclusion that he does not think he will be able to return to his job without it impacting his mental health. Discussed trying to accept that he may need to leave his current position, which in tur means his would have to return to the workforce. Shared struggling with significant guilt related to the effects leaving his will have on his . Noted that although they have had several conversations regarding the topic and are in agreement, he continues to feel guilt. Did well to identify this as inappropriate guilt recognized that the fear of failing his or disappointing her is reinforcing his guilt. Challenged these thoughts by identifying that right now they are just looking at the different options for them both before making a decision and they won't move forward with making permanent changes unless both are sure. Pt plans to still return on a part-time basis May 13, which will also allow for him to further assess his occupa tional functioning and needs moving forward. Went on to discuss an additional stressor as his sexual orientation. Pt reports he recently came out as bi-sexual and although he has no intention of exploring what that means in a physical, sexual, or romantic regard; he would like to better understand what this means for him emotionally and in terms of feeling connected with his identify and his community. Shared that this has been a confusing process and lot for him to try and Time Stopped:: 12:17
--- NOTE | 2024-04-23 09:00 | BH.SGPN.GN ---
Behaviors/Verbalizations/Mental Status: [] Pt alert and oriented, neatly dressed and groomed. Eye contact good. Motor activity appropriate. Speech within normal limits. Affect congruent, mood euthymic and anxious. Thoughts linear, logical, no signs of hallucinations or delusions. Reviewed pt?s symptom tracker, no risk for suicidal ideation, plan, or intent 04/23/24 Client Response/Progress/Benefit: []Pt was an active participant in group discussions. Attentive. Able to identify mental health wins including having some good talks with his about his career options and future. Pt also feels that he is practicing self-care more often. Pt's stressor today is that he has been trying to exercise more, but it has been triggering his health anxiety. Pt stated he is feeling both tired and relieved today after talking with his . Pt receptive to feedback from peers which pt reported was helpful. Progress noted. Benefited from group support, encouragement, and feedback. Will continue in IOP to promote mood stability, increase self-confidence, and improve ability to manage distress. Narrative Note: []
--- NOTE | 2024-04-23 10:15 | BH.SGPN.GN ---
Behaviors/Verbalizations/Mental Status: []Pt alert and oriented, casually dressed and groomed. Eye contact good. Motor activity appropriate. Speech within normal limits. Affect congruent, mood content. Thoughts linear, logical, no signs of hallucinations or delusions. ? Client Response/Progress/Benefit: []Pt responded well to session, attentive and engaged. Pt participated in activity where pts had to guess the celebrity with a known mental health diagnosis and this led to discussion on self-stigma. Group participated in the discussion defining stigma as well as what stigma has kept pt's from doing in their lives. Pt stated mental health stigma has led pt to not reach out for help from his supports. Pt admits that he assumes others will see him as a burden or inconvenience. Pt worked with peers to begin discussion of what reinforces stigma and this was discussed further in the next group. Pt appeared to benefit from learning about the different types of stigma as well as gaining awareness of how stigma has personally impacted pt. Pt will continue IOP tx to promote mood stability, increase use of healthy coping and thought challenging skills, and prevent decompensation. Narrative Note: []
--- NOTE | 2024-04-23 11:15 | BH.SGPN.GN ---
Behaviors/Verbalizations/Mental Status: []Pt alert and oriented, casually dressed and groomed. Eye contact good. Motor activity appropriate. Speech within normal limits. Affect congruent, mood euthymic. Thoughts linear, logical, no signs of hallucinations or delusions. Client Response/Progress/Benefit: [] Pt engaged participant AEB participating in the activity, providing input during small group discussion, and listening attentively to others. Pt appeared to connect with discussion in the benefits of addressing mental health stigma which included: improved relationships, increased willingness to seek help, increased happiness, and improved confidence. Group brainstormed strategies to combat social and perceived stigma. Pt shared one thing pt can do to combat mental health stigma is to stop apologizing for being himself. Appeared to benefit from increasing awareness of strategies to combat stigma. Will continue IOP tx to reinforce healthy coping skills, challenge distortions, and prevent decompensation.
--- NOTE | 2024-04-23 15:33 | BH.MDN ---
Multi-Disciplinary Note Note 60-min Individual: Time Started:: 11:30 Date: 04/24/24 Purpose of session/treatment goals addressed:: Purpose of session was to work on treatment goal #1 obj #1 and goal #2 obj #1 & #2. Eye Contact:: Good Motor Activity:: Appropriate Appearance:: Neat and Casual Speech:: Appropriate Mood:: Euthymic and Anxious Thoughts:: Linear, Logical and No evidence of hallucinations/delusions noted Staff Interventions:: thought challenging, CBT techniques, strengths perspective, taught coping skills (reviewed emotion release skills) and other (emotion validation) Client Response:: Pt receptive of session, actively engaged throughout. Pt reports overall things are ?pretty good? but that he has recently had a lot of different things he has been trying to process at once. 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 Noted that this will likely then mean he will have to return to his current job temporarily as he determines his next occupational steps. Shared feeling anxious about doing so as he does not believe he is able to cognitively keep up with his current role. Reports struggling with information retention and is going to meet with a neurologist soon to determine whether this is stress and anxiety related or if there is an underlying issue. Did acknowledge that he has not yet reached out to his ?people lead? at work or human resources regarding his concerns and possible accommodations, such as returning on a reduced workload. Pt reports willingness to reach out to his employer to schedule a time to discuss his return and possible accommodations. Receptive of reflecting on his needs prior to this meeting and creating a list of possible accommodations. Went on to indicate that he and his have had several positive conversations regarding pt?s sexual orientation and were on good terms regarding pt pt wanting to further reflect on what this means and looks like for him as this change in orientation is new for him. Pt went on to indicate however they had a recent miscommunication in which he assumed his was suggesting the explore relationships with other people while also remaining committed to one another. Shared this resulted in his feeling hurt and insecure in the relationship as this was not what she had intended to communicate. Pt did well to process and recognize he can be curious about his sexuality while also wanting to honor his ?s boundaries and committed to their relationship. Noted feelings of guilt for misinterpreting the conversation but was able to communicate this and acknowledged the emotional confusion and complexity this may present for his as well. Reports that most days they check-in with one another and often process stressors from the day which is positive but can be heavy. Shared they rarely have days where they do not try to process with one another and did well to recognize a need for emotional reprieve and lighthearted interaction with one another. Pt created a goal to have a date night in which they are not allowed to bring up a stressor in order to give them both time to incorporate fun and decrease stress. Risks/Concerns:: Pt denies SI, plan, or intent as of this date 04/24/24 Progress Toward Goals/Plan:: Progress remains variable. Pt is making gains in perspective challenging, improved self-reflection, and more consistently reaching out to supports. He has done well to accept changes in his career he would like to make and is working on identifying supports he will need upon return to work in the mean time. Pt continues to struggle with self-care and health related anxiety which impacts his mood and reinforces unhealthy thought patterns. Pt is recommended continued IOP tx to improve mood stability, promote stress management, and prevent decompensation. Time Stopped:: 12:30
--- NOTE | 2024-04-24 09:05 | BH.SGPN.GN ---
Behaviors/Verbalizations/Mental Status: [] ?Pt alert and oriented, casually dressed and groomed. Eye contact good. Motor activity appropriate. Speech within normal limits. Affect congruent, mood content but stressed. Thoughts linear, logical, no signs of hallucinations or delusions. Reviewed pt?s symptom tracker, no risk for suicidal ideation, plan, or intent 04/24/24 Client Response/Progress/Benefit: []Pt receptive of session, engaged throughout and appearing to benefit from group support and encouragement. Identified current mental health wins as helping his with caregiving responsibilities for her mother. Shared feeling proud to be able to provide support in this way. Additional win noted as challenging himself to step outside his usual comfort zone and wear a more colorful shirt rather than trying to blend in. Stressor noted as trying to decide what his next step is in regards to employment. Identified several brainstorming steps he is currently taking to consider all possible options. Benefited from group supportive feedback, encouragement, and support. Recommended continued IOP tx to prevent decompensation, improve mood stability, and promote skill application. Narrative Note: []
--- NOTE | 2024-04-24 10:15 | BH.SGPN.GN ---
Behaviors/Verbalizations/Mental Status: []Pt alert and oriented, neatly dressed and groomed. Eye contact good. Motor activity appropriate. Speech within normal limits. Affect full, mood euthymic. Thoughts linear, logical, no signs of hallucinations or delusions. Client Response/Progress/Benefit: []Pt participated in group discussion. Group worked together to identify benefits of healthy relationships which included encouragement, motivation, longer lifespan, connectedness and trust. Group identified factors that lead to unhealthy relationships which included low self-esteem, trauma, use of unhealthy skills, parent's negative relationship growing up, and co-dependence. Pt reports he has entered unhealthy relationships in the past because of seeking what is familiar. Benefited from increased insight and awareness of benefits of healthy relationships and factors that contribute to unhealthy relationships. Will continue in IOP to increase consistent use of healthy coping skills, challenge negative thoughts, and increase self-confidence. Narrative Note: []
--- NOTE | 2024-04-24 11:39 | PCM.BH.PN_ITS ---
Progress Note Progress Note: History of Present Illness/Interim History: The patient is a 53-year-old male with a history of depression, anxiety and ADHD who is seen in follow-up at the [facility] behavioral health [facility]. I last saw the patient 2 weeks ago and at that time Lexapro dose was increased to 10 mg jose e ly by his outpatient provider. The patient feels that his the Lexapro dose increases have helped his anxiety and depression. 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 His and he have had extensive discussions about his options and he feels good about his decision. His sleep remains good at about 6 to 8 hours a night and he has some concentration issues but energy level is good. He denies passive thoughts of , suicidal ideation, plan for suicide, homicidal ideation, hallucinations or delusions. He no panic attacks for months now. Current Psychiatric Medications: [] Lexapro 10 mg p.o. daily (on this dose for 2 weeks and will increase to 15 mg daily tonight as per the plan by his outpatient provider. Mental Status Examination: [] The patient is a 53-year-old male who appears normal for stated age and is casually dressed and groomed with good hygiene. He is ambulatory with a normal gait and has no psychomotor agitation or retardation. He is cooperative and pleasant during the interview. Eye contact is good and speech is normal rate and rhythm and fluent with no pressure. Mood is mildly anxious. Affect is full and normal. Thought process is goal-directed and organized. Thought content: There is evidence of worry about his career change and he is still somewhat somatically focused with complaints of vibrations in his chest. There is no evidence of passive thoughts of , suicidal ideation, homicidal ideation, plan for suicide, thoughts of self-harm, hallucinations or delusions. Reality testing is intact. Intelligence is above average. Judgment is intact. Insight: Limited but some present. Impulsivity: Low. Diagnoses: [] 1. Major depressive disorder, recurrent, moderate 2. Generalized anxiety disorder 3. Panic disorder 4. ADHD 5. Work and primary support issues Plan: [] The patient will continue the [facility] and behavioral health as the structure, support, education and group therapy will hopefully prevent worsening of the patient's symptoms. He felt safe during the interview and if it anytime he does not feel safe he agrees to let us know or go to the emergency room. The patient will continue to follow the increase of the Lexapro dose as ordered by his outpatient providers. No other medication changes were made today. He has been referred to a neurologist by his primary care doctor for his vibrations in his chest, arms and legs with no physically detectable symptoms. He will continue to follow-up with his outpatient providers and I will see the patient in follow-up while he is in the [facility].
--- NOTE | 2024-04-26 09:05 | BH.SGPN.GN ---
Behaviors/Verbalizations/Mental Status: [] Eye contact is good. Motor activity is appropriate. Appearance is casual. Speech is Appropriate. Mood is euthymic. Affect is full. Thoughts are linear and logical. No evidence of psychosis. Reviewed daily check in sheet and no reports of suicidal ideations or intent. Client Response/Progress/Benefit: [] Pt was an active participant in group discussions. Attentive. ? I?m on a peak so I have lots of wins?. 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 According to pt he has been on an ?emotional journey? for several months and in the past few weeks has been open and honest with himself and support. Several lifestyle changes which have been beneficial. Progress noted. Benefited from group support, encouragement, and feedback. Will continue in IOP to maintain gains. Narrative Note: []
--- NOTE | 2024-04-26 10:15 | BH.SGPN.GN ---
Behaviors/Verbalizations/Mental Status: [] Eye contact is good. Motor activity is appropriate. Appearance is casual. Speech is Appropriate. Mood is content. Affect is congruent. Thoughts are linear and logical. No evidence of psychosis. Client Response/Progress/Benefit: [] Pt engaged participant AEB listening to others, engaging in activity, and providing feedback at times. Attentive during psychoeducation and provided insight into obstacles that impede mental wellness. Pt shared with group current mental health reality and desired mental health reality, noting that he feels clouded by his thoughts and decisions he needs to make with no clear. Desires a sense of direction. Identified barriers to desired reality include: resistance to skill application, fear of failure, and lack of acceptance. Benefited from taking look at current mental health state and obstacles for progress. Pt to continue IOP tx to decrease anxiety, improve thought challenging skill application, and prevent decompensation. Narrative Note: []
--- NOTE | 2024-04-26 11:15 | BH.SGPN.GN ---
Behaviors/Verbalizations/Mental Status: []Eye contact is good. Motor activity is appropriate. Appearance is casual. Speech is Appropriate. Mood is euthymic. Affect is congruent. Thoughts are linear and logical. No evidence of psychosis. Client Response/Progress/Benefit: []Pt was an engaged participant in group discussion and activity. Worked with group to identify strategies to help overcome barriers and obstacles to desired reality. Group developed strategies for the common barriers. Identified personal barriers to desired reality and choose one obstacle to work. Pt stated pt wants to work on barrier of resisting helpful techniques by ?making journaling a priority not an afterthought.? Pt seemed to benefit from increased repertoire of healthy coping skills/strategies to overcome common barriers to moving forward. Pt is to continue IOP to promote mood stability, reduce negative thinking patterns, and improve self-compassion. Narrative Note: []
--- NOTE | 2024-04-30 09:05 | BH.SGPN.GN ---
Behaviors/Verbalizations/Mental Status: [] ?Pt alert and oriented, casually dressed and groomed. Eye contact good. Motor activity appropriate. Speech within normal limits. Affect congruent, mood anxious and content. Thoughts linear, logical, no signs of hallucinations or delusions. Reviewed pt?s symptom tracker, no risk for suicidal ideation, plan, or intent 04/30/24 Client Response/Progress/Benefit: []Pt receptive of session, engaged throughout and appearing to benefit from group support and encouragement. Identified current mental health wins as communicating with his to discuss budgeting concerns regarding upcoming return to work at a reduced rate. Notes this was positive and less anxiety provoking than initially expected. Additional win noted as taking time for self-care to get outside and ?go hiking. Current stressor noted as return tob work in a few weeks. Did well to challenge these distortions reinforcing pt?s anxiety. Benefited from group supportive feedback, encouragement, and support. Recommended continued IOP tx to prevent decompensation, improve mood stability, and promote skill application. Narrative Note: []
--- NOTE | 2024-04-30 10:15 | BH.SGPN.GN ---
Behaviors/Verbalizations/Mental Status: [] Eye contact is good. Motor activity is appropriate. Appearance is casual. Speech is Appropriate. Mood is anxious. Affect is congruent. Thoughts are linear and logical. No evidence of psychosis. Client Response/Progress/Benefit: [] Pt was an engaged participant AEB listening attentively to others, taking notes, and providing feedback in small group discussions. Attentive during psychoeducation AEB by note taking and providing some input. Pt worked along with peers in small groups to define inappropriate guilt and appropriate guilt. Interactive discussion on examples of both inappropriate and appropriate guilt. Worked well in small group with peers where they identified example of inappropriate vs appropriate guilt and the impact inappropriate guilt can have on MH. Benefited from increased awareness of guilt and the differences between appropriate and inappropriate guilt. Plan is to continue in IOP to maintain gains and improve functioning to return to work. Narrative Note: []
--- NOTE | 2024-04-30 15:05 | BH.MDN_ITS ---
Multi-Disciplinary Note Note 45-min Individual: Time Started:: 11:40 Date: 04/30/24 Purpose of session/treatment goals addressed:: Purpose of session was to work on treatment plan goal #1, obj's #1 and goal # 2 obj #2. Eye Contact:: Good Motor Activity:: Appropriate Appearance:: Neat and Casual Speech:: Appropriate Mood:: Euthymic Affect:: Congruent Thoughts:: Linear, Logical and No evidence of hallucinations/delusions noted Staff Interventions:: thought challenging, CBT techniques, discharge planning, strengths perspective and goal setting Client Response:: Pt receptive of session, openly discussed current areas of progress as well as stressors. Reports ongoing anxiety about returning to work on May 13, just under two weeks from now, but more confident and prepared than he had previously been feeling. Noted following-through with goal of reaching out to his people-lead to discuss what return to work will look like. 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 Reports his people lead was very understanding and that he has been reminding himself that if returning to this place of employment isn?t a fit moving forward, he has other options. Pt stated he and his have begun adjusting their spending to supplement his income for a brief period of time if pt does decide to leave his job. Noted that in the last week his mood has been improved, he feels less anxious, more motivated, and increasingly connected with those around him. Attributes this to connecting with friends he hasn?t seen in some time, expressing gratitude for his and continuing to have discussions regarding the role their sexuality has in their relationship and personal identity, as well as consistently getting out of the house and exercising with his . Described a recent insight that engaging in physical activity when around others he is calmer and does not notice the same concerning physical sx he has when exercising alone. Insight that this may serve as evidence his sx are more health anxiety related than he had previously thought. Connected with discussion on exposure therapy and gradually working up to independent hiking after he has consistently gotten into an exercise routine with others. Pt reports wanting to get used to reminding his brain he is ?okay? when exercising with others first, given previous avoidance altogether. Noted that although his mood and connection with supports his improve, he finds he is lacking independent self-care. Described several hobbies and interests he had previously been actively engaged with but no longer feels connected to and therefore is unsure of where to start with independent self-care. Reflected on several possible options and ultimately identified wanting to get back into biking and try journaling. Reports goals to do each at least once in the next week. Risks/Concerns:: No SI or thoughts of as of this date 04/30/24 Progress Toward Goals/Plan:: Progress noted. Pt reports following-through with his goals over the past week and reports improved mood and reduced depression and anxiety as a result. Discussed feeling overall more hopeful and positive. Pt reports he has also been making progress with reflecting and connecting with his , acceptance and focusing on what is in his control regarding his occupational stress, as well as actively incorporating values work into planning for his future and daily activities. Continues to struggle with health anxiety surrounding exercise, concentration, and worries about return to work, as well as variable levels of motivation. Pt recommended continued IOP tx to complete return to work plan, promote consistent skill application, and prevent decompensation. Time Stopped:: 12:26
--- NOTE | 2024-05-01 09:05 | BH.SGPN.GN ---
Behaviors/Verbalizations/Mental Status: [] Eye contact is good. Motor activity is appropriate. Appearance is casual. Speech is Appropriate. Mood is euthymic. Affect is full. Thoughts are linear and logical. No evidence of psychosis. Reviewed daily check in sheet and no reports of suicidal ideations or intent. Client Response/Progress/Benefit: [] Pt was an active participant in group discussions. Utilizing healthy coping strategies and noticing benefits. Emotion for today is ?peaceful?. He continues to work on making difficult decisions in his life which have been impacting his mental health. Planning on making significant life changes. He has a plan to return to work and is confident that he is better able to function. Benefited form group support, encouragement, and feedback. Will continue in IOP to prevent decompensation, maintain gains, and improve functioning to return to work. Narrative Note: []
--- NOTE | 2024-05-01 10:10 | BH.SGPN.GN ---
Behaviors/Verbalizations/Mental Status: [] Client alert and oriented, casually dressed and groomed. Eye contact good. Motor activity appropriate. Speech within normal limits. Affect congruent, mood euthymic and positive. Thoughts linear, logical, no signs of hallucinations or delusions. Client Response/Progress/Benefit: [] Pt responded well to session AEB sharing and listening attentively to others. Group provided examples of benefits of having social support, including: validation, get assistance, and accountability. Pt also participated in group discussion regarding the barriers to accessing support. Pt shared personal barriers to support include: mental/physical health, trying to be self-sufficient, and lack of availability. Pt participated in experiential activity illustrating the impact communication, boundaries, and patience play in creating healthy support systems. Pt appeared to benefit from increased knowledge of the benefits of social support and greater self-awareness. Pt to continue IOP to increase healthy coping skills, challenge distortions, and prevent decompensation.
--- NOTE | 2024-05-01 11:15 | BH.SGPN.GN ---
Behaviors/Verbalizations/Mental Status: []Client alert and oriented, casually dressed and groomed. Eye contact good. Motor activity appropriate. Speech within normal limits. Affect congruent, mood euthymic. Thoughts linear, logical, no signs of hallucinations or delusions. Client Response/Progress/Benefit: [] Pt participated throughout AEB contributing to discussion, providing personal examples, and taking notes. Pt provided input during discussion on the types of support our supports can provide. Pt able to identify current support system and barriers that get in the way of using supports. Pt reported after identifying what type of supports pt receives, pt gained awareness that pt could benefit from more tangible support. Pt recognizes that one of this strengths and his weaknesses is being ?self-sufficient and I need to follow through with getting help.? Pt seemed to benefit from identifying the type of support pt needs to work on improving. Pt recommended to continue IOP tx to promote mood stability, increase self-compassion, and combat distortions. Narrative Note: []
--- NOTE | 2024-05-03 09:00 | BH.SGPN.GN ---
Behaviors/Jenelle ?Pt alert and oriented, casually dressed and groomed. Eye contact good. Motor activity appropriate. Speech within normal limits. Affect congruent, mood anxious and content. Thoughts linear, logical, no signs of hallucinations or delusions. Reviewed pt?s symptom tracker, no risk for suicidal ideation, plan, or intent 05/03/24 Client Response/Progress/Benefit: [] Pt was an active participant in group discussions. Attentive. Able to identify mental health wins including learning that much of his physical health anxiety is also secondary to long-covid and has been given an inhaler to aid in reducing shortness of breath. Additional win noted as doing well to remain positive about his upcoming return to work. Expressed some anxiety about ensuring his accommodations are respected and maintaining boundaries but has been reminding himself of his skills and the supports he has occupationally. Benefited from group support, encouragement, and feedback. Will continue in IOP to prevent decompensation, improve daily functioning, and successfully transition back to work. Narrative Note: []
--- NOTE | 2024-05-03 10:13 | BH.SGPN.GN ---
Behaviors/Verbalizations/Mental Status: [] Eye contact is good. Motor activity is appropriate. Appearance is casual. Speech within normal limits. Mood is eythimic. Affect is congruent. Thoughts are linear and logical. No evidence of psychosis. Client Response/Progress/Benefit: [] Client was an active participant in group discussion and experiential activity. Attentive during psychoeducation on resilience. Participated in interactive discussion with peers on the definition of resilience and where it comes from. Group identified that resiliency can be impacted by; past experiences, upbringing, and current mental health state. Group also worked together to identify the benefits of being resilient and how it is related to mental health. Able to relate experiential activity of group juggle to topics of resilience. Worked well with peers in small group in which they identified factors that contribute to resilience. Benefited from increased awareness of resilience and the factors that contribute to building resilience. Will continue in IOP to prevent decompensation and increase overall functioning. Narrative Note: []
--- NOTE | 2024-05-03 11:13 | BH.SGPN.GN ---
Behaviors/Verbalizations/Mental Status: [] Client alert and oriented, neatly dressed and groomed. Eye contact good. Motor activity appropriate. Speech within normal limits. Affect congruent, mood euthymic. Thoughts linear, logical, no signs of hallucinations or delusions Client Response/Progress/Benefit: [] Client responded well to session AEB completing the resilience worksheet provided. Client actively participated in the discussion and worked cooperatively with group to identify strategies to enhance each of the components discussed. Client reports belief they already use resilience trait of ? self awareness.? Client discussed that they could work on keeping things in perspective. Client seemed to benefit from discussing strategies for improving personal resilience and identifying resilience traits client already possesses. Will continue IOP tx to increase self-worth and overall functioning. Narrative Note: []
--- NOTE | 2024-05-08 10:10 | BH.SGPN.GN ---
Behaviors/Verbalizations/Mental Status: [] Pt alert and oriented, casually dressed and groomed. Eye contact good. Motor activity appropriate. Speech within normal limits. Affect congruent, mood anxious. Thoughts linear, logical, no signs of hallucinations or delusions. Client Response/Progress/Benefit: [] Pt an active participant in group discussions on defining conflict (internal/external) and possible benefits to conflict. Attentive during psychoeducation on conflict styles (avoidant, accommodating, competing, cooperative) and engaged during group discussion in which peers identified the benefits and consequences to each conflict style. Pt identified that his styles tend to change in the situations however would like to be more cooperative/competing when dealing with work and boundary-setting . Benefited from increased awareness of the impact of conflict styles in mental health. Will continue in IOP to prevent decompensation, increase healthy coping, and improve functioning to return to work. Narrative Note: []
--- NOTE | 2024-05-08 11:09 | BH.MDN ---
Multi-Disciplinary Note Note 45-min Individual: Time Started:: 09:11 Date: 05/08/24 Purpose of session/treatment goals addressed:: Purpose of session is to review pt return to work plan, as well as address any additional stressors. Eye Contact:: Good Motor Activity:: Appropriate Appearance:: Neat and Casual Speech:: Appropriate Mood:: Euthymic Affect:: Bright Thoughts:: Linear, Logical and No evidence of hallucinations/delusions noted Staff Interventions:: motivational interviewing, CBT techniques, strengths perspective and other (reviewed return to work coping plan) Client Response:: Pt responded well, actively engaged throughout. Reports overall he is ?doing really well?. Shared feeling much more confident in himself and genuine in the past few weeks. Attributes this to his willingness to accept and embrace LGBTQ identity, as well as his ?s ability to be open, understanding, and supportive throughout his journey in self-discovery. Pt reports feeling more comfortable now that he is no longer repressing a part of his identity. Shared feeling initially uncomfortable but ultimately proud and excited to allow his to paint his nails yesterday. Pt noted that in the past internalized stigma and fear of rejection kept him from allowing himself to explore this area of his personality. Went on to indicate beliefs that his workplace will be accepting and supportive of the external changes in his appearance. Reports feeling more prepared to return to work on Monday, attributing the reduction in his anxiety to several things. Described confirmation that he has sx of long-covid is reducing anxiety associated with fogginess and difficulties concentrating he has been experiencing on occasion, hopeful these sx will continue to subside. Additionally, notes reminding himself of the adjustments he has made in terms of occupational responsibilities is improving his confidence in going back. Shared ?I?m taking it one day at a time? and indicated that he and his have agreed if he does not feel it is a fit by the of the year, he will pursue alternative employment options. Noted they have already cut back on their monthly expenses in several areas to save should he decide to look for a new job. Pt reports some anxiety that he will go back and struggle to balance self-care outside of work, as well as the additional stressors of having his [id number] move in. Reports this is an ongoing conversation with his and pt believes that if her can consistently practice gratitude, create a self-care schedule for both he and his , and continue to communicate his needs with his employer he will be able to maintain gains made in IOP. Plan is for pt to remain in IOP tx an additional week for continued support and aftercare planning as he adjusts to returning to work. Risks/Concerns:: None noted. Pt denies SI, plan, or intent as of this date 05/08/24 Progress Toward Goals/Plan:: Progress noted. Pt reports a reduction in sx of depression and anxiety. He indicates improved motivation and energy, hopefulness for his future, as well as increased confidence. Noted his marriage is in a positive and supportive place, he is no longer isolating, and has improved with challenging himself to engage in independent self-care; however this does continue to be inconsistent in nature. Pt notes reduced health anxiety since beginning to use an albuterol inhaler. Pt is anxious but ready to return to work. Continues to struggle at times with thought distortions associated with returning to work and will remain in IOP tx one more week for additional support as he transitions back to work. Initial appointment with outpatient therapist scheduled for this week as well. Time Stopped:: 09:52
--- NOTE | 2024-05-08 11:10 | BH.SGPN.GN ---
Behaviors/Verbalizations/Mental Status: []Eye contact is good. Motor activity is appropriate. Appearance is casual. Speech is Appropriate. Mood is content. Affect is congruent. Thoughts are linear and logical. No evidence of psychosis. Client Response/Progress/Benefit: [] Pt was an active participant in group discussions and activity. Engaged with peers in activity and identifying healthy ways to approach each conflict scenario. Group discussed various conflict resolution skills that can be useful in addressing conflict outside of IOP. Benefited from practicing and learning conflict resolution skills during group activity. Able to identify areas pt wants to work on to improve how pt manages conflict both internally and externally. Expressed wanting to work on using more competing skills when he feels his boundaries are being disrespected in the workplace. Will continue in IOP to maintain mood stability and prevent decompensation as pt transitions back to work. Narrative Note: []
== END 2024-05-09 23:59 ==
LOC: BHIOP 08:04
PROVIDERS: Referring Provider Psychiatry & Neurology Psychiatry; Visit Provider Psychiatry & Neurology Psychiatry
DX: F33.1 Major depressive disorder, recurrent, moderate (principal); F41.1 Generalized anxiety disorder; F41.0 Panic disorder [episodic paroxysmal anxiety]; F90.9 Attention-deficit hyperactivity disorder, unspecified type; Z79.899 Other long term (current) drug therapy
CPT/HCPCS: S9480; 90834; 90837; 90853

== ENCOUNTER 2024-05-10 07:58 | Outpatient (RCR) | payer OTHER, SELFPAY ==
[2024-05-10 00:25] VITALS: BP 157/92; PULSE 63
--- NOTE | 2024-05-10 09:05 | BH.SGPN.GN ---
Behaviors/Verbalizations/Mental Status: [] Eye contact is good. Motor activity is appropriate. Appearance is casual. Speech is Appropriate. Mood is euthymic. Affect is full. Thoughts are linear and logical. No evidence of psychosis. Reviewed daily check in sheet and no reports of suicidal ideations or intent. Client Response/Progress/Benefit: [] Pt was an active participant in group discussions. Attentive. Emotion for today is Good and peaceful . He is happy with his progress over the past several weeks stating I'm in a good head space . According to pt while in IOP he has addressed his mental health , changed his perspective, learned new coping strategies, and also beleives that medication have been helpful. It's taken decades to get to this point. Progress noted. Benefited from group support, encouragement, and feedback. Will continue in IOP to maintain gains and transition back to work. Narrative Note: []
--- NOTE | 2024-05-10 10:16 | BH.SGPN.GN ---
Behaviors/Verbalizations/Mental Status: [] Eye contact is good. Motor activity is appropriate. Appearance is casual. Speech is Appropriate. Mood is content. Affect is congruent. Thoughts are linear and logical. No evidence of psychosis. Client Response/Progress/Benefit: [] Pt participated at times during group discussion. Engaged in group activity and attentive during psychoeducation. Along with peers, pt was able to identify barriers to taking action in their life. Identified several symptoms and stressors that pt feels are holding them back from progress such as fear of failure, people pleasing, and becoming easily distracted. Stated these things have kept pt from finding a healthy work/life balance. Benefited from increased self-awareness of obstacles. Will continue IOP tx to prevent decompensation, further stabilize mood as he transitions back to work, and increase consistency of healthy coping. Narrative Note: []
--- NOTE | 2024-05-14 09:00 | BH.SGPN.GN ---
Behaviors/Verbalizations/Mental Status: [] Pt alert and oriented, neatly dressed and groomed. Eye contact good. Motor activity appropriate. Speech within normal limits. Affect congruent, mood euthymic. Thoughts linear, logical, no signs of hallucinations or delusions. Reviewed pt?s symptom tracker, no risk for suicidal ideation, plan, or intent 05/14/24 Client Response/Progress/Benefit: []Pt was an active participant in group discussions. Attentive. Able to identify mental health wins including using deep breathing, self-awareness, and reminding himself of his resilience and strength. Pt's stressor today is that he tried to go back to work part-time this week, but pt shared they didn't have everything sorted out so I couldn't. Pt shared he was surprised with how anxious this made pt, but he feels like he handled it well. Pt stated he is feeling happy this morning. Pt receptive to feedback from peers which pt reported was helpful. Progress noted. Benefited from group support, encouragement, and feedback. Will continue in IOP to promote mood stability, reinforce healthy coping skills, and establish aftercare. Narrative Note: []
--- NOTE | 2024-05-14 11:20 | BH.SGPN.GN ---
Behaviors/Verbalizations/Mental Status: []Eye contact is good. Motor activity is appropriate. Appearance is casual. Speech is Appropriate. Mood is content. Affect is congruent. Thoughts are linear and logical. No evidence of psychosis. Client Response/Progress/Benefit: []Pt responded well to session AEB listening attentively to peers and taking notes throughout. Reports connecting with flexible and porous boundaries, identified difficulties with porous time boundaries. Participated in group discussion brainstorming various strategies for improving healthy boundary setting. Pt reports wanting to improve his boundaries when it comes to tie management and ending something when planned rather than continuing to work. Seemed to benefit from increased awareness of how different boundary styles can impact mental health. Will continue IOP tx to prevent decompensation, improve daily functioning, and increase mood stability. Narrative Note: []
--- NOTE | 2024-05-15 14:35 | BH.DS_ITS ---
Discharge Summary Demographics Date of Admission:: 03/26/24 Discharge Date: 05/15/24 Presenting Problems at Admission:: Pt recognizes that he is tends to be self- critical, pushes himself, and is a perfectionist. Pt also struggles with believing he is only worthy if he is productive, which leads to pt feeling guilty or burnout. Pt is also the primary income in the household which puts additional pressure on him. Functional Impact: The patient is a 53-year-old male with a history of anxiety, depression and ADHD who was referred to the [facility] behavioral health IOP by his psychiatrist due to worsening anxiety and depression which is making him unable to function at work and at home for the past 6 months. Patient reports his primary stressor as increasing pressure at work, noting he does not feel he can handle any more responsibility. He feels very emotionally drained by the time he gets home from work and has been on FMLA leave since March 12, 2024 due to anxiety. He states that he feels himself dying inside at work and stated this happened previously a year ago in which he also took FMLA for 2 months to address the anxiety. He has difficulty concentrating and loses his train of thought often at work. Other stressors include his [id number] whom has Alzheimer?s moving in in July, his ?s health and not wanting her to have to return to the workforce, and his daughter getting . Pt endorses panic 2-3x/week, ruminating thoughts, hopelessness, guilt, low energy, poor concentration, and loss of enjoyment in activities he previously enjoyed. Denies worthlessness, anhedonia, passive thoughts of , suicidal ideation, plan for suicide, homicidal ideation, history of self-harm, hallucinations, delusions, minoo, OCD, eating disorders and trauma or PTSD. Current sx impacting pt?s ability to function at baseline, resulting in recommended IOP level of care. Discharge Diagnoses:: 1. Major depressive disorder, recurrent, moderate 2. Generalized anxiety disorder 3. Panic disorder 4. ADHD Reason for Discharge:: Pt has accomplished his tx goals AEB his reduction in DSM-5 scores, improved functioning, and self-report. Pt no longer meets criteria for IOP level of care and he will transition to outpatient counseling and IOP aftercare group. Treatment Progress During Treatment & Response: Pt has responded well to treatment as evidenced by Pt consistently attending IOP sessions and his reduction of DSM-5 scores since admission. Pt was always attentive and receptive to learning during group and individual sessions. Pt actively applied coping skills outside of IOP, reports overall his mood is improved, and he is functioning better than he was several months ago. Pt?s overall symptom reduction is 76% since admission with anger decreasing by 100%, depression decreasing by 100%, and anxiety decreasing by 60%. Pt has increased self-confidence in his ability to manage anxiety and unexpected stressors, set healthy boundaries, and transition back to work. Pt did well with identifying and challenging negative thinking patterns and mistaken beliefs reinforcing sx of depression. Pt reports improved sense of confidence and self-acceptance as a result. Pt will continue seeing his outpatient psychiatrist through [facility] and begin seeing Nadeem Salmon through [facility]. Issues Still to be Addressed:: Continued to work reducing anxiety symptoms, maintaining gains, and adjusting to return to work. Discharge Recommendations/Instructions:: Pt will follow up with Nadeem Salmon at [facility] for outpatient therapy and his next session is 05/16/24. Pt has regular medication management with outpatient provider through [facility]. Pt will begin IOP aftercare group on 05/23/24. Discharge Handout
--- NOTE | 2024-05-15 15:23 | BH.MDN_ITS ---
Multi-Disciplinary Note Note 45-min Individual: Time Started:: 09:25 Date: 05/15/24 Purpose of session/treatment goals addressed:: To address current stressors and discuss strategies to help cope with these stressors. Another goal was to discuss discharge and aftercare. Eye Contact:: Good Motor Activity:: Appropriate Appearance:: Neat and Casual Speech:: Appropriate Mood:: Euthymic Affect:: Bright Thoughts:: Linear, Logical and No evidence of hallucinations/delusions noted Staff Interventions:: motivational interviewing, discharge planning, strengths perspective and reviewed DSM-5 Client Response:: Pt responded well to session, open to meeting with therapist. Pt reports feeling mixed emotions today. Pt explained he is excited, grateful and proud of the progress he has made throughout IOP tx, but also anxious, sad, and angry today as well. Pt explained some anxiety and sadness to be discharging from IOP tx; however, his additional complicated emotions are related to anxiety about returning work as his start date was pushed back due to an administrative error as well as processing the presidential election results this morning. Described concerns for his two transgender children related to potential new policies and restrictions that can come with a change in political leadership. Did well to process associated emotions and recognize the importance of reaching out and communicating with supports, as well as focusing on what is within his control regarding current stressors. Did well to identify areas of progress throughout IOP tx. Pt feels their perspective has changed the most since starting IOP and pt is able to challenge their distorted thinking, specifically people pleasing tendencies. Pt also has made steps towards pursuing his interests and exploring his identity in ways he had never felt confident enough to explore before. Pt has been consistent with applying coping skills, setting goals and following through using opposite action, sitting with discomfort, and communicating their needs. Pt has also been able to get back into hobbies and practice more independent self-care. Pt did well during IOP and pt acknowledged that they put forth much effort while in the program which pt feels paid off. Risks/Concerns:: Pt denies any suicidal ideations, plan, or intent. Pt denies any thoughts of . Progress Toward Goals/Plan:: Pt will discharge from IOP tx today as pt has accomplished their goals AEB pt?s overall symptom reduction is 76% since admission with anger decreasing by 100%, depression decreasing by 100%, and anxiety decreasing by 60%. Pt does have an initial session scheduled with outpatient therapist, Nadeem Salmon through [facility] in [place], for 05/16/24. He is established with Psychiatry through [facility]. Pt will start IOP aftercare next week on 07/23/23. Time Stopped:: 10:05
== END 2024-05-15 14:39 | disposition home or self-care (01) ==
LOC: BHIOP 07:58
PROVIDERS: Referring Provider Psychiatry & Neurology Psychiatry; Visit Provider Psychiatry & Neurology Psychiatry
DX: F33.1 Major depressive disorder, recurrent, moderate (principal); F41.0 Panic disorder [episodic paroxysmal anxiety]; F41.1 Generalized anxiety disorder; F90.9 Attention-deficit hyperactivity disorder, unspecified type; Z79.899 Other long term (current) drug therapy
CPT/HCPCS: S9480; 90834; 90853